=== PATIENT | male | born 1955 | race Caucasian/White ===

== ENCOUNTER 2017-08-16 11:00 | Outpatient (RCR) | payer MEDICARE, MEDICAID ==
[2014-01-13 10:30] VITALS: BP 114/60
[~2017-08-16 11:00] MED LIST: DEPAKENE PO; PERCOCET 325 MG1 TA2 PO; PREDNISONE20 M1 PO; SEROQUEL50 MG PO; VENTOLIN0.09 MG IH; ZITHROMAX 250M250 MG PO
== END 2017-08-16 11:30 | disposition still patient (30) ==
LOC: PT 11:00
DX: R26.81 Unsteadiness on feet (principal)
CPT/HCPCS: G8978-GP; G8979-GP

== ENCOUNTER 2018-01-30 09:54 | Emergency (ER) | payer MEDICARE, MEDICAID ==
[~2018-01-30] VITALS: Ht 188 cm; Wt 70.0 kg
[2018-01-30] MEDS ORDERED: RYTARY1 CE2 PO ×2 (10:03→10:11)
[2018-01-30] MEDS ORDERED: KLONOPIN 0.5MG0.5 MG PO (10:03)
[2018-01-30] MEDS ORDERED: DEPAKOTE ER 25250 MG PO (10:04)
[2018-01-30] MEDS ORDERED: PROPRANOLOL HCL20 M2 PO (10:07)
[2018-01-30] MEDS ORDERED: ATORVASTATIN CA10 MG PO (10:09)
[2018-01-30 10:48] LABS: HEMATOCRIT 40.5 % (42.0-52.0); HEMOGLOBIN 13.5 g/dL (13.5-18.0); MEAN CELL VOLUME 97 fl (78-100); MEAN CORPUSCULAR HEMOGLOBIN 32 pg (27-31); MEAN CORPUSCULAR HGB CONC 33 g/dL (33-37); MEAN PLATELET VOLUME 9.8 fl (7.4-10.4); PLATELET COUNT 173 K/mm3 (130-400); RED BLOOD COUNT 4.17 M/mm3 (4.20-5.60); RED CELL DISTRIBUTION WIDTH 13.9 % (11.5-14.5)
[2018-01-30 11:00] LABS: ALBUMIN 3.4 g/dL (3.5-5.0); BUN/CREATININE RATIO 18.7 (6.0-26.0); CALCIUM 8.6 mg/dL (8.4-10.2); POTASSIUM 3.6 mmol/L (3.6-5.0); TOTAL BILIRUBIN 0.5 mg/dL (0.2-1.3); TOTAL PROTEIN 7.7 g/dL (6.3-8.2)
[2018-01-30 11:05] LABS: LYMPHOCYTE 14 % (20-51); MONOCYTE 8 % (3-10); NEUTROPHILS 75 % (42-75)
[2018-01-30 14:01] LABS: URINE APPEARANCE CLEAR; URINE BILIRUBIN NEGATIVE (NEGATIVE); URINE BLOOD NEGATIVE (NEGATIVE); URINE COLOR YELLOW; URINE GLUCOSE NEGATIVE (NEGATIVE); URINE KETONE SMALL (NEGATIVE); URINE LEUKOCYTE ESTERASE NEGATIVE (NEGATIVE); URINE MUCUS PRESENT (NOT PRESENT); URINE NITRATE NEGATIVE (NEGATIVE); URINE PROTEIN(semi-quant) TRACE mg/dL (NEGATIVE); URINE UROBILINOGEN 4 mg/dL (NORMAL)
[2018-01-30] MEDS ORDERED: LEVAQUIN 750MG750 M1 PO (15:01)
[2018-01-30] MEDS ORDERED: NORCO 325 MG-51 TA1 PO (15:01)
[2018-01-30] MEDS ORDERED: FLAGYL500 M1 PO (15:01)
[2018-01-30 15:09] VITALS: BP 93/61
== END 2018-01-30 15:24 | disposition home or self-care (01) ==
LOC: ED 09:54
PROVIDERS: Nurse Practitioner Primary Care
DX: M71.121 Other infective bursitis, right elbow (principal); R91.8 Other nonspecific abnormal finding of lung field; M48.56XA Collapsed vertebra, not elsewhere classified, lumbar region, initial encounter for fracture; I10 Essential (primary) hypertension; G20 Parkinson's disease; G40.909 Epilepsy, unspecified, not intractable, without status epilepticus; F17.210 Nicotine dependence, cigarettes, uncomplicated; Z91.81 History of falling; F31.9 Bipolar disorder, unspecified; F41.9 Anxiety disorder, unspecified
CPT/HCPCS: Q9967

== ENCOUNTER 2018-05-11 15:06 | Observation (INO) | payer MEDICARE, MEDICAID ==
[~2018-05-11] VITALS: Ht 188 cm; Wt 68.0 kg
[~2018-05-11 15:06] MED LIST changes: +ATORVASTATIN CA10 MG PO; +DEPAKOTE ER 25250 MG PO; +FLAGYL500 M1 PO; +KLONOPIN 0.5MG0.5 MG PO; +LEVAQUIN 750MG750 M1 PO; +NORCO 325 MG-51 TA1 PO; +PROPRANOLOL HCL20 M2 PO; +RYTARY1 CE2 PO
[2018-05-11] MEDS ORDERED: RYTARY1 CER PO (15:29)
[2018-05-11] MEDS ORDERED: QUETIAPINE FUM100 M1 PO (15:29)
[2018-05-11 16:13] LABS: HEMATOCRIT 39.5 % (42.0-52.0); HEMOGLOBIN 12.6 g/dL (13.5-18.0); MEAN CELL VOLUME 98 fl (78-100); MEAN CORPUSCULAR HEMOGLOBIN 31 pg (27-31); MEAN CORPUSCULAR HGB CONC 32 g/dL (33-37); PLATELET COUNT 185 K/mm3 (130-400); RED BLOOD COUNT 4.05 M/mm3 (4.20-5.60); RED CELL DISTRIBUTION WIDTH 18.1 % (11.5-14.5); WHITE BLOOD COUNT 10.4 K/mm3 (4.8-10.8)
[2018-05-11 16:20] LABS: ALBUMIN 3.7 g/dL (3.5-5.0); ALT/SGPT 11 U/L (21-72); AST-SGOT 14 U/L (17-59); CALCIUM 11.2 mg/dL (8.4-10.2); CARBON DIOXIDE 28 mmol/L (22-30); GLUCOSE 99 mg/dL (75-110); SODIUM 137 mmol/L (137-145); TOTAL BILIRUBIN 0.8 mg/dL (0.2-1.3); TOTAL PROTEIN 8.4 g/dL (6.3-8.2)
[2018-05-11 16:36] LABS: ALCOHOL IN-HOUSE < 10 mg/dL
[2018-05-11 16:55] LABS: HYPOCHROMIA 1+; LYMPHOCYTE 10 % (20-51); MONOCYTE 12 % (3-10); NEUTROPHILS 72 % (42-75)
[2018-05-11 17:06] LABS: URINE APPEARANCE HAZY; URINE COLOR AMBER
[2018-05-11 17:07] LABS: URINE BILIRUBIN 2+ (NEGATIVE); URINE BLOOD NEGATIVE (NEGATIVE); URINE GLUCOSE NEGATIVE (NEGATIVE); URINE KETONE 1+ (NEGATIVE); URINE LEUKOCYTE ESTERASE NEGATIVE (NEGATIVE); URINE NITRATE NEGATIVE (NEGATIVE); URINE PROTEIN(semi-quant) TRACE mg/dL (NEGATIVE); URINE UROBILINOGEN 4 mg/dL (NORMAL)
[2018-05-11 17:08] LABS: URINE MUCUS PRESENT (NOT PRESENT)
[2018-05-11 18:08] VITALS: BP 122/70
[2018-05-11 18:19] VITALS: BP 122/70
[2018-05-11 18:21] VITALS: BP 122/70
--- NOTE | 2018-05-11 18:29 | NUR ---
Pt admitted to room 302. Pt is alert and pleasant. Pt is alert to self and situtation. Sisters present report decline in menatation and confusion getting worse over the last week. Pt is poor historian. Pt also has increase in weakness. Pt assisted to be with 2 assist. Pt tolerates fair. IV infusing as ordered into right forearm. Call light in reach and reviewed with pt. Fall precautions in place.
--- NOTE | 2018-05-11 19:00 | NUR ---
Bed side shift report received from Lissa Reyes RN. Pt resting in bed, eyes closed and even respirations. TV on, bed alarm set and call light with in reach of pt. Open eyes when spoken too. Denies SOB, chest pain. IV fluids of normal saline infusing at 125mls/hr.
--- NOTE | 2018-05-11 20:00 | NUR ---
Continues to rest in bed, eyes closed and even respirations. Opens eyes when spoken too. Continues to deny having any chest pain or SOB. Sa02 on room air 84%, Pulse 73, respirations 18. Oxygen applied at 2L/NC. Pt instructed on incentive spirometer. Pt able to reach 1000 x 2. Sa02 increased to 93%.
--- NOTE | 2018-05-11 21:45 | NUR ---
Resting in bed, awake and a/o x 3. Sa02 97% on 2L/NC. Vanilla pudding and apple sauce given to help pt swallow evening medications. Pt did cough x 2 when swallowing medications. Pt refused to allow medications to be crushed.
--- NOTE | 2018-05-11 21:47 | NUR ---
Given vanilla ensure, patient drank without difficulty.
[2018-05-11 23:02] VITALS: BP 113/70
--- NOTE | 2018-05-11 23:22 | NUR ---
Continues to rest in bed, bed alarm set and call light with in reach of pt. Opens eyes when spoken too. Denies having pain or SOB. Sa02 98% on 2L/NC. Oxygen decreased to 1L/NC.
--- NOTE | 2018-05-12 00:56 | NUR ---
q hourly checks done. Bed alarm set and call light with in reach of pt. Opens eyes when spoken too. Follows commands. Pt drowsy. Sa02 96% on 1L/NC. Pulse 60 Respirations 20. Denies SOB or chest pain.
[2018-05-12 03:00] VITALS: BP 120/74
--- NOTE | 2018-05-12 03:40 | NUR ---
Q hourly checks done, bed alarm set and call light with in reach of pt. Pt drowsy, opens eyes when spoken too. Denies pain. Incontinent of urine, depends changed. Pt repositioned onto left side. Sa02 91-92% on 1L/NC. Oxygen increased to 2L/NC.
--- NOTE | 2018-05-12 05:50 | NUR ---
Q hourly checks done, bed alarm set and call light with in reach of pt. Pt opens eyes when spoken and touched. Depends checked and pt repositioned onto right side. Sa02 95% on 2L/NC. Oxygen decreased to 1L/NC. IV of normal saline continues to infuse at 125mls/hr. Denies having any pain or SOB.
[2018-05-12 06:21] VITALS: BP 106/69
[2018-05-12 06:49] LABS: HEMOGLOBIN 10.7 g/dL (13.5-18.0); MEAN CELL VOLUME 98 fl (78-100); MEAN CORPUSCULAR HEMOGLOBIN 32 pg (27-31); MEAN CORPUSCULAR HGB CONC 32 g/dL (33-37); MEAN PLATELET VOLUME 9.1 fl (7.4-10.4); PLATELET COUNT 171 K/mm3 (130-400); RED BLOOD COUNT 3.36 M/mm3 (4.20-5.60); WHITE BLOOD COUNT 9.4 K/mm3 (4.8-10.8)
--- NOTE | 2018-05-12 06:50 | NUR ---
Bed side shift report given to Coreen Corrales RN
[2018-05-12 07:00] LABS: ALBUMIN 2.8 g/dL (3.5-5.0); POTASSIUM 3.6 mmol/L (3.6-5.0); TOTAL BILIRUBIN 0.5 mg/dL (0.2-1.3); TOTAL PROTEIN 6.5 g/dL (6.3-8.2)
[2018-05-12 07:17] LABS: BAND 5 % (0-10); LYMPHOCYTE 7 % (20-51); NEUTROPHILS 72 % (42-75)
[2018-05-12 07:18] LABS: HYPOCHROMIA 1+; MONOCYTE 14 % (3-10); POLYCHROMASIA 1+; TARGET CELLS 1+
--- NOTE | 2018-05-12 08:20 | NUR ---
PT VERY LETHARGIC THIS MORNING, DISORIENTED TO QUESTIONS, SPEECH IS MUMBLING, DENIES PAIN, HE IS AROUSABLE WITH TOUCH BUT DIFFICULT TO AROUSE, ONCE AWAKE PT STATES HE "FEELS FINE", UNABLE TO SAFELY ADMINISTER PO MEDS THIS AM, SIXTO CORTEZ NOTIFIED, IV FLUIDS RUNNING, IV SITE IS INTACT AND NO SIGNS OF CONCERN AT THIS TIME, PT IS INCONTINENT OF URINE, PLAN IS TO DC TO [facility] TODAY, FAMILY COMING LATER THIS SHIFT TO DISCUSS THIS PLAN WITH ALEXY LANIER, NO ACUTE CHANGES NOTED AT THIS TIME EXCEPT FOR INCREASED LETHARGY, PRN KLONOPIN GIVEN LAST NIGHT BY RN, POSSIBLY SLEEPY FROM THIS DOSE, WILL CONTINUE TO MONITOR
[2018-05-12 11:01] VITALS: BP 120/74
--- NOTE | 2018-05-12 11:51 | NUR ---
FAMILY DISCUSSING PLAN OF CARE WITH SHOAIB CHO HUMAN RESOURCES SPECIALIST BY TO ASSESS PATIENT AT THIS TIME
--- NOTE | 2018-05-12 14:31 | NUR ---
PT ACCEPTED INTO [facility] [place] [facility], FAMILY PROVIDING TRANSPORTATION, PT GETTING ASSISTANCE GETTING DRESSED AT THIS TIME, IV REMOVED, WILL ASSIST PATIENT TO VEHICLE WITH ALL APPRORIATE BELONGINGS UPON DC
[2018-05-12 14:41] VITALS: BP 120/74
--- NOTE | 2018-05-12 15:02 | NUR ---
PT DISCHARGED AT THIS TIME IN STABLE CONDITION, FAMILY PROVIDING TRANSPORTATION, FAMILY VERY APPRECIATIVE OF CARE AND DISCHARGE PLANNING EFFORTS MADE BY ALEXY LANIER AND [facility] STAFF, PT'S FAMILY STATES THEY HAVE HIS WALLET AND HE DID NOT HAVE HIS GLASSES HERE PREVIOUSLY CHARTED, ALL BELONGINGS SENT WITH PATIENT AT THIS TIME, FAMILY STATES THEY WILL STOP BY THE HOUSE AND INTERACTIVE MEDIA PROJECT MANAGER PATIENTS "RYTARY" MEDICATION
--- NOTE | 2018-05-12 16:08 | NUR ---
Pt's sisters would like pt transferred to Hospice Care at a LTCF. [facility] screens pt and takes all information and then at 1:00pm on this date refuses pt. [facility] is asked about pt needing a CARE Assessment and they state he does not have a CARE on file and if he has a Terminal DX he will not need a CARE. Records are sent to [facility] and [facility]. [facility] accepts pt, however family declines, stating that [place] is too far away. They have also declined any LTCF's in [place] stating they have not heard good things about them. This nurse googles [employer] for [facility] where pt's sister, Roberto Carlos, who primarily manages pt's health care lives and they choose [facility]. Manager Drug Safety tells this nurse that they will consider pt, but not until next week. Roberto Carlos states that [facility] has a Hospice unit. [facility], Bridget Garcia is called and she states that they can accept pt with "Admit to Hospice - Respite Care while caregiver situation is rectified for DX: Life expectancy less than six months, secondary to DX of L Lung Mass". She states if pt can arrive at 4:00pm, they will be able to accept pt on this date. Miracle Little APRN is notified and in agreement. Pt signs DPOA for financial and health care to be represented by his sisters, Roberto Carlos Bowman and Bridget Juice - he is so weak he can only sign with an "X", but verabilizes agreement in front of two witnesses and Notary and his sisters all are present. Discharge Orders and paperwork and DPOA papers are faxed to Bridget Garcia RN for [facility] in [place], [facility] states that Dr Wm Martinez, who is pt's sister, Roberto Carlos Bowman, PCP will accept pt and they will assess pt and find him an appropriate loc near his sister Roberto Carlos. Pt and sisters are all in agreement w/ discharge plan.
== END 2018-05-12 14:45 | disposition hospice, home (50) ==
LOC: ED 15:06 → MED/SURG 16:57
PROVIDERS: ADMIT Nurse Practitioner Primary Care
DX: R53.1 Weakness (principal); R41.0 Disorientation, unspecified; R91.8 Other nonspecific abnormal finding of lung field; Z91.81 History of falling; M54.9 Dorsalgia, unspecified; Z51.5 Encounter for palliative care; Z79.899 Other long term (current) drug therapy; Z74.2 Need for assistance at home and no other household member able to render care; J44.9 Chronic obstructive pulmonary disease, unspecified; G40.909 Epilepsy, unspecified, not intractable, without status epilepticus; Z86.59 Personal history of other mental and behavioral disorders; F17.210 Nicotine dependence, cigarettes, uncomplicated
CPT/HCPCS: G0378; J1650; J2270; J7030